=== PATIENT | female | born 1970 | race Caucasian/White ===

== ENCOUNTER → 2016-06-14 | Outpatient (CLI) | payer OTHER, MEDICARE ==
--- NOTE | 2016-06-14 13:57 | US ---
EXAMINATION TYPE: US gallbladder DATE OF EXAM: 06/14/2016 1:16 PM COMPARISON: NONE CLINICAL HISTORY: R10.10 Upper abd pain,R07.1 CHEST PAIN. EXAM MEASUREMENTS: Liver Length: 17.6 cm Gallbladder Wall: 0.3 cm CBD: 0.4 cm Right Kidney: 11.7 x 3.6 x 4.6 cm TECHNOLOGIST IMPRESSION: Pancreas: wnl Liver: ?upper limits of normal in size Gallbladder: wnl Evidence for sonographic Rutherford's sign: no CBD: wnl Right Kidney: wnl Visualized pancreas is felt within normal limits. IVC is unremarkable near hepatic dome. Visualized l iver shows no suspicious intrahepatic mass or ductal dilatation. Common bile duct is within normal li mits. Gallbladder shows no shadowing mobile gallstones. No gross hydronephrosis is present in the rig ht kidney. IMPRESSION: No gallstones or ultrasound evidence for acute cholecystitis.
== END | disposition home or self-care (01) ==
LOC: RADUSWWP 12:53
PROVIDERS: ATTEND Family Medicine
DX: R10.10 Upper abdominal pain, unspecified (principal); R07.1 Chest pain on breathing
CPT/HCPCS: 76705

== ENCOUNTER → 2016-06-14 | Outpatient (CLI) | payer OTHER, MEDICARE ==
--- NOTE | 2016-06-14 13:59 | US ---
EXAMINATION TYPE: US transvaginal DATE OF EXAM: 06/14/2016 1:38 PM COMPARISON: NONE CLINICAL HISTORY: N92.0 Menorrhagia, patient believes she had left oophorectomy, but unsure of side. Spotting throughout month on control pill TECHNIQUE: Transvaginal (TV) pelvic ultrasound Date of LMP: 06-14-16 EXAM MEASUREMENTS: Uterus: 6.3 x 3.7 x 4.4 cm Endometrial Stripe: 0.3 cm Right Ovary: not visualized Left Ovary: not visualized cm TECHNOLOGIST IMPRESSION: wnl 1. Uterus: Anteverted 2. Endometrium: wnl 3. Right Ovary: Obscured by extensive overlying bowel gas 4. Left Ovary: Obscured by extensive overlying bowel gas 5. Bilateral Adnexa: wnl 6. Posterior cul-de-sac: wnl, anterior cul de sac contains moderate amount of ff . Endometrial stripe does not show suspicious thickening. Uterus is slightly bulky and heterogeneous maharaj ggesting possible fibroids. No well-demarcated fibroids are clearly identified. Small to moderate krupa unt of free fluid is seen in pelvis. Neither ovary is identified. No concerning adnexal masses are identified bilaterally on images saved. IMPRESSION: Heterogeneous bulky uterus may reflect underlying fibroids. No suspicious thickening of e ndometrial stripe is seen.
== END | disposition home or self-care (01) ==
LOC: RADUSWWP 12:51
PROVIDERS: ATTEND Obstetrics & Gynecology
DX: N92.0 Excessive and frequent menstruation with regular cycle (principal)
CPT/HCPCS: 76830

== ENCOUNTER 2016-06-17 11:44 | Emergency (ER) | payer OTHER, MEDICARE ==
[2016-06-17] MEDS ORDERED: SODIUM CHLORIDE 0.9% 500 ML IV ONE (12:17)
[2016-06-17] MEDS ORDERED: ONDANSETRON 4 MG/2 ML VIAL IVP STA (12:18)
[2016-06-17] MEDS ORDERED: KETOROLAC 30 MG/ML 1 ML VIAL IVP STA (12:18)
[2016-06-17] MEDS ORDERED: diphenhydrAMINE 50 MG/ML 1 ML VIAL IVP STA (12:18)
[2016-06-17 12:53] VITALS: RESP 18
--- NOTE | 2016-06-17 13:13 | ED ---
Headache HPI - General Chief Complaint: Headache Stated Complaint: headache, vomiting Time Seen by Provider: 06/17/16 12:01 Source: patient, RN notes reviewed Mode of arrival: ambulatory Limitations: no limitations - History of Present Illness Initial Comments: 46-year-old female presents emergency Department chief complaint headache. Patient states the headache started this morning. Patient states she does have some intermittent lightheadedness, nausea vomiting. Patient states she tried taking Excedrin but states that she vomited up immediately. Patient had some headaches like this in the past. Patient denies any focal weakness, chest pain , shortness of breath but, blurred vision. Patient denies any trauma or any head injury. Patient has no neck pain no neck stiffness. Patient denies fever , chills. - Related Data Home Medications Medication Instructions Recorded Confirmed [id number] 1 tab PO Q4HR PRN 06/17/16 06/17/16 [Excedrin] Juleber 1 tab PO DAILY 06/17/16 06/17/16 traMADol HCL [Ultram] 50 mg PO Q6HR PRN 06/17/16 06/17/16 Allergies Allergy/AdvReac Type Severity Reaction Status Date / Time ciprofloxacin [From Cipro] Allergy Anaphylaxis, Verified 06/17/16 11:51 vomiting ciprofloxacin HCl Allergy Anaphylaxis Verified 06/17/16 11:51 [From Cipro] ofloxacin [From Floxin] Allergy Anaphylaxis Verified 06/17/16 11:51 azithromycin AdvReac Diarrhea Verified 06/17/16 11:51 [From Zithromax Z-Javier] cefuroxime axetil AdvReac Swelling Verified 06/17/16 11:51 [From Ceftin] hydrocodone bitartrate AdvReac weakness Verified 06/17/16 11:51 [From Vicodin] sulfamethoxazole AdvReac flu like Verified 06/17/16 11:51 [From Bactrim] symptoms trimethoprim [From Bactrim] AdvReac flu like Verified 06/17/16 11:51 symptoms Review of Systems ROS Statement: Those systems with pertinent positive or pertinent negative responses have been documented in the HPI. ROS Other: All systems not noted in ROS Statement are negative. 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, pleuritic pain History of Any Multi-Drug Resistant Organisms: None Reported Past Surgical History: Orthopedic Surgery Additional Past Surgical History / Comment(s): left ovary romoved 2014, bilateral hand surgeries, kimberley carpal tunnel, tendon release, vaginal surgery, colposcopy Past Anesthesia/Blood Transfusion Reactions: Postoperative Nausea & Vomiting ( PONV) Additional Past Anesthesia/Blood Transfusion Reaction / Comment(s): severe Headaches post op Past Psychological History: No Psychological Hx Reported Smoking Status: Former smoker Past Alcohol Use History: None Reported Additional Past Alcohol Use History / Comment(s): quit smoking 1996, smoked for 5 years Past Drug Use History: None Reported - Past Family History Mother Family Medical History: No Reported History Additional Family Medical History / Comment(s): maternal grandfather with diabetes General Exam Limitations: no limitations General appearance: alert, in no apparent distress Head exam: Present: atraumatic, normocephalic, normal inspection Eye exam: Present: normal appearance, PERRL, EOMI. Absent: scleral icterus, conjunctival injection, periorbital swelling ENT exam: Present: normal exam, normal oropharynx, mucous membranes moist, TM's normal bilaterally, normal external ear exam Neck exam: Present: normal inspection, full ROM. Absent: tenderness, meningismus, lymphadenopathy Respiratory exam: Present: normal lung sounds bilaterally. Absent: respiratory distress, wheezes, rales, rhonchi, stridor Cardiovascular Exam: Present: regular rate, normal rhythm, normal heart sounds. Absent: systolic murmur, diastolic murmur, rubs, gallop, clicks Neurological exam: Present: alert, oriented X3, CN II-XII intact, reflexes normal. Absent: motor sensory deficit Skin exam: Present: warm, dry, intact, normal color. Absent: rash Course Vital Signs 06/17/16 06/17/16 11:49 12:52 Temperature 97.9 F 98.4 F Pulse Rate 80 65 Respiratory 20 18 Rate Blood Pressure 144/86 162/81 O2 Sat by Pulse 96 100 Oximetry Medical Decision Making - Medical Decision Making 46-year-old female presented for headache. Patient states her headache is improved at this time. Patient has no neurological deficits. Patient tolerated fluids emergency department. Patient will be discharged at this time return parameters were discussed. Disposition Clinical Impression: Migraine Disposition: HOME SELF-CARE Condition: Stable Instructions: Acute Headache (ED) Additional Instructions: Please return to the Emergency Department if symptoms worsen or any other concerns. Time of Disposition: 13:30
[2016-06-17] MEDS ORDERED: ONDANSETRON 4 MG ODT STARTER PACK 2 TAB BTL PO STA (13:30)
[2016-06-17 13:49] VITALS: BP 151/74; PULSE 71; TEMP 97.7
== END 2016-06-17 13:49 | disposition home or self-care (01) ==
LOC: EC 11:44
DX: G43.909 Migraine, unspecified, not intractable, without status migrainosus (principal); Z79.3 Long term (current) use of hormonal contraceptives; Z88.1 Allergy status to other antibiotic agents; Z88.5 Allergy status to narcotic agent; Z88.2 Allergy status to sulfonamides; Z87.891 Personal history of nicotine dependence
CPT/HCPCS: 96374 ×2; 96375 ×3; 96361 ×2; 99283 ×2; J1200; J2405; J1885; S0119

== ENCOUNTER → 2017-02-13 | Outpatient (CLI) | payer MEDICARE, OTHER ==
--- NOTE | 2017-02-13 16:28 | NM ---
EXAMINATION TYPE: NM bone scan whole body DATE OF EXAM: 02/13/2017 COMPARISON: NONE HISTORY: 46-year-old female with chest pain, low back, and rib pain. Reconstructive jaw surgery 2 mon ths ago. Technique: Delayed whole-body scanning was performed following the injection of 27.5 mCi Tc 99m MDP. Images acquired 3.5 hours post injection. FINDINGS: There is radiotracer activity in the region of the mandibular angles likely on a postsurgical basis. Some degenerative activity noted in the right hindfoot/ankle region. Otherwise, no abnormal tracer ac cumulation is identified. IMPRESSION: 1. Likely postsurgical activity at the mandible given patient's history. 2. Some degenerative activity at the right ankle/hindfoot. Otherwise, no specific abnormality seen.
== END ==
LOC: RADNMMAIN 10:30
PROVIDERS: ATTEND Family Medicine
DX: R07.9 Chest pain, unspecified (principal)
CPT/HCPCS: 78306; A9503

== ENCOUNTER → 2017-03-13 | Outpatient (CLI) | payer MEDICARE, OTHER ==
--- NOTE | 2017-03-13 13:10 | MR ---
EXAMINATION TYPE: MR thoracic spine wo con DATE OF EXAM: 03/13/2017 12:39 PM COMPARISON: October 14, 2015 HISTORY: radiculopthy tsp, spasms Multiplanar MultiSpin echo imaging of the thoracic spine was performed. Disc spaces: No significant degenerative disc disease identified. Stable small right paracentral disc bulge at T8-T9. No evidence for kimberley disc herniation. Spinal canal: No evidence for canal stenosis. No intrinsic or extrinsic lesion. Thoracic spinal cord: Thoracic spinal cord is of normal caliber and signal. Paraspinal soft tissues: No evidence for paraspinal mass. No destructive lesions seen. Vertebral segments: No evidence for fracture or bony lesion. Other: Previously noted pulmonary nodule is poorly characterized on today's study. IMPRESSION: 1. Stable small disc bulge at T8-T9.
== END | disposition home or self-care (01) ==
LOC: RADMRIMAIN 11:36
PROVIDERS: ATTEND Family Medicine
DX: M51.14 Intervertebral disc disorders with radiculopathy, thoracic region (principal)
CPT/HCPCS: 72146

== ENCOUNTER → 2017-03-17 | Outpatient (CLI) | payer MEDICARE, OTHER ==
[2017-03-17 09:35] LABS: Basophils % (A) 1 %; CH 26.2; CHCM 31.5; Eosinophils % (A) 1 %; HCT 39.5 % (34.0-46.0); HDW 2.89; HGB 12.2 gm/dL (11.4-16.0); Hypochromasia Slight; Luc # (Auto) 0.15; Luc % (Auto) 4; Lymphocytes # (A) 0.6 k/uL (1.0-4.8); Lymphocytes % (A) 15 %; MCH 25.8 pg (25.0-35.0); MCHC 30.8 g/dL (31.0-37.0); MCV 83.8 fL (80.0-100.0); Mean Platelet Volume 7.5; Monocytes # (A) 0.3 k/uL (0-1.0); Monocytes % (A) 8 %; Neutrophils % (A) 73 %; RBC 4.72 m/uL (3.80-5.40); RDW 13.9 % (11.5-15.5); WBC 4.1 k/uL (3.8-10.6); WBC (Perox) 3.95
== END | disposition home or self-care (01) ==
LOC: LABPAT 08:38
PROVIDERS: ATTEND Obstetrics & Gynecology
DX: Z01.812 Encounter for preprocedural laboratory examination (principal)
CPT/HCPCS: 85025

== ENCOUNTER 2017-03-23 05:56 | Day surgery (SDC) | payer MEDICARE, OTHER ==
[2017-03-21 12:08] VITALS: BMI 19.7
--- NOTE | 2017-03-22 13:01 | P.HPOB ---
History of Present Illness H&P Date: 03/22/17 Chief Complaint: Dysfunctional uterine bleeding This patient is a pleasant 46 yr female who is presenting for hysteroscopy and D&C for persistent DUB. Patient had an ultrasound on June 14 that showed some ? uterine fibroids and normal endometrial lining (3 mm). She has been on OCPs, but persistent DUB. She now presents for further evaluation. 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 History of Any Multi-Drug Resistant Organisms: None Reported Past Surgical History: Orthopedic Surgery Additional Past Surgical History / Comment(s): Left ovary removed, bilateral hand surgeries, kimberley carpal tunnel, tendon release, vaginal surgery, colposcopy, upper and lower jaw surgery. Past Anesthesia/Blood Transfusion Reactions: Family History of Problems w/ Anesthesia, Postoperative Nausea & Vomiting (PONV) Additional Past Anesthesia/Blood Transfusion Reaction / Comment(s): Severe headaches post op, grandmother with same reactions. Past Psychological History: No Psychological Hx Reported Smoking Status: Former smoker Past Alcohol Use History: None Reported Additional Past Alcohol Use History / Comment(s): Quit smoking in 1996, smoked for 5 years. Past Drug Use History: None Reported - Past Family History Mother Family Medical History: No Reported History Additional Family Medical History / Comment(s): maternal grandfather with diabetes Medications and Allergies Home Medications Medication Instructions Recorded Confirmed Type Control Pill 1 tab PO HS 03/21/17 03/21/17 History Allergies Allergy/AdvReac Type Severity Reaction Status Date / Time ciprofloxacin [From Cipro] Allergy Anaphylaxis, Verified 03/21/17 11:53 vomiting ciprofloxacin HCl Allergy Anaphylaxis Verified 03/21/17 11:53 [From Cipro] ofloxacin [From Floxin] Allergy Anaphylaxis Verified 03/21/17 11:53 azithromycin AdvReac Diarrhea Verified 03/21/17 11:53 [From Zithromax Z-Javier] cefuroxime axetil AdvReac Swelling Verified 03/21/17 11:53 [From Ceftin] hydrocodone bitartrate AdvReac weakness Verified 03/21/17 11:53 [From Vicodin] sulfamethoxazole AdvReac flu like Verified 03/21/17 11:53 [From Bactrim] symptoms trimethoprim [From Bactrim] AdvReac flu like Verified 03/21/17 11:53 symptoms Exam - OBG Physical Exam Abdomen: bowel sounds normal, no diffuse tenderness, no bruit present, no guarding noted, no hepatomegaly, no splenomegaly, no mass Vulva: both: normal Vagina: normal moisture, no discharge Cervix: no lesion, no discharge Uterus: normal size, normal contour Adnexa: both: normal Results Pelvic ultrasound as above. Assessment and Plan (1) Dysfunctional uterine bleeding Narrative/Plan: This is a pleasant 46 yr old female with refractory DUB. Plan is hysteroscopy and D&C. Patient and I have discussed this surgery and risks: infection, bleeding, possible uterine perforation. All of her questions have been answered and a written consent was obtained. Status: Chronic Code(s): N93.8 - OTHER SPECIFIED ABNORMAL UTERINE AND VAGINAL BLEEDING SNOMED Code(s): 83433195
[~2017-03-23 05:56] MED LIST: DEXAMETHASONE SOD PHOSPHATE 10 MG/ML 1 ML VIAL IV ONE; HYDROmorphone 0.5 MG/0.5 ML SYRINGE IVP PRN; LACTATED RINGERS 1,000 ML IV SCH; MIDAZOLAM 2 MG/2 ML VIAL IV PRN; ONDANSETRON 4 MG/2 ML VIAL IVP ONE; Pre Op ABX Message 1 EACH MISC MISCELLANE ONE
[2017-03-23] MEDS ORDERED: LIDOCAINE 1% 20 ML VIAL (10MG/ML) FOR IV START INTRADERMA ONE (06:28)
[2017-03-23] MEDS ORDERED: fentaNYL (PF) 50 MCG/ML 2 ML AMP ONE (06:36)
[2017-03-23] MEDS ORDERED: PROPOFOL 10 MG/ML 20 ML VIAL IV ONE (06:36)
[2017-03-23] MEDS ORDERED: MIDAZOLAM 2 MG/2 ML VIAL ONE (06:36)
[2017-03-23] MEDS ORDERED: LIDOCAINE 1% INJ 10MG/ML (20 ML MDV) ONE (06:36)
[2017-03-23] MEDS ORDERED: KETOROLAC 30 MG/ML 1 ML VIAL ONE (06:36)
--- NOTE | 2017-03-23 07:09 | P.OP ---
Date of Procedure: 03/23/17 Preoperative Diagnosis: Dysfunctional uterine bleeding Postoperative Diagnosis: Same Procedure(s) Performed: #1: Hysteroscopy. #2: Dilation and curettage. Anesthesia: MAC Surgeon: Oscar Hayward Estimated Blood Loss (ml): 5 IV fluids (ml): 150 Urine output (ml): 10 Pathology: other Condition: stable Disposition: PACU (Uterine curettings) Indications for Procedure: Please see dictated H&P for intimate details of this patient's admission. Brief summary this pleasant 46-year-old 2 para 2 female whose had refractory dysfunctional bleeding despite being on oral contraceptives. Patient is now presenting for hysteroscopy and D&C for further evaluation. Patient does understand the surgery and risks including risks of infection, bleeding, possible uterine perforation. All the patient's questions are answered and a written consent is obtained. Operative Findings: This patient had a normal-appearing endometrial cavity and a severely retroverted uterus. No evidence of polyps, fibroids, and/or other growths. Description of Procedure: This patient is taken to the operating room where she is laid in the supine position. She subsequently undergoes general mask anesthesia without incident. With an adequate level of anesthesia she's placed in dorsal lithotomy position. She has a vaginal perineal prep and drape. Examination under anesthesia shows a severely retroverted uterus of normal size, small. Bladder is drained for 10 mL of clear urine. A weighted speculum was placed in the posterior vagina and the anterior lip of the cervix is grasped with the Allis clamp. Uterus is then sounded to approximately 7 cm. Gentle dilation is then done to allow the hysteroscope easily and the uterine cavity. Using saline solution hysteroscopy is performed and the uterine cavity is visualized and appears normal. Hysteroscope was then removed. With this done serial dilation is done again of the cervix to allow a curette easily and the uterine cavity. A gentle but vigorous 4 quadrant curettage is done for adequate sampling. This tissue is sent off to pathology. With this done the procedure is ended. The Allis clamp was removed and the weighted speculum was removed. All counts are correct 3. There is minimal bleeding. Patient is awakened from anesthesia and taken to the recovery room in satisfactory condition. There are no complications.
[2017-03-23 07:14] VITALS: TEMP 98.7
[2017-03-23 07:26] VITALS: RESP 16
[2017-03-23 08:45] VITALS: BP 114/66; PULSE 87
== END 2017-03-23 09:00 | disposition home or self-care (01) ==
LOC: OR 05:56
PROVIDERS: ATTEND Obstetrics & Gynecology
DX: N93.8 Other specified abnormal uterine and vaginal bleeding (principal); N85.4 Malposition of uterus; Z79.3 Long term (current) use of hormonal contraceptives; M51.24 Other intervertebral disc displacement, thoracic region; M06.9 Rheumatoid arthritis, unspecified; Z87.891 Personal history of nicotine dependence; Z88.1 Allergy status to other antibiotic agents; Z88.5 Allergy status to narcotic agent; Z88.2 Allergy status to sulfonamides
CPT/HCPCS: 81025; 58558; J2250; J1100; J2405; J2001; J3010; J1885; J2704; J1170; 88305

== ENCOUNTER → 2017-11-24 | Outpatient (CLI) | payer MEDICARE, OTHER ==
--- NOTE | 2017-11-27 12:24 | MM ---
Reason for exam: screening (asymptomatic). Last mammogram was performed 2 years and 7 months ago. History: Taking hormonal contraceptives for 6 years. Physical Findings: A clinical breast exam by your physician is recommended on an annual basis and results should be correlated with mammographic findings. MG 3D Screening Mammo W/Cad Bilateral CC and MLO view(s) were taken. Prior study comparison: April 24, 2015, bilateral MG screening mammo w CAD. December 12, 2012, bilateral digital screening mammo w/CAD. The breast tissue is extremely dense which could obscure a lesion on mammography. No significant changes when compared with prior studies. ASSESSMENT: Negative, BI-RAD 1 RECOMMENDATION: Routine screening mammogram of both breasts in 1 year.
== END | disposition home or self-care (01) ==
LOC: RADMAMWWP 09:14
PROVIDERS: ATTEND Obstetrics & Gynecology
DX: Z12.31 Encounter for screening mammogram for malignant neoplasm of breast (principal)
CPT/HCPCS: 77063; 77067

== ENCOUNTER → 2018-09-04 | Outpatient (CLI) | payer MEDICARE, OTHER ==
--- NOTE | 2018-09-04 08:57 | CT ---
EXAMINATION TYPE: CT chest wo con DATE OF EXAM: 09/04/2018 COMPARISON: 07/16/2009 HISTORY: 48-year-old female Chest pain, unable to take deep breath TECHNIQUE: Contiguous axial scanning of the chest without IV contrast. Coronal and sagittal reconstru ctions performed. CT DLP: 317 mGycm Automated exposure control for dose reduction was used. FINDINGS: Heart upper limits of normal in size. Trace pericardial fluid/thickening. Aorta normal caliber with conventional arch vessel branching anatomy. Scattered nonenlarged mediastinal and axillary lymph nodes. No thoracic lymphadenopathy by CT size cr iteria. Right apical pleural-parenchymal scarring. Bandlike scarring or atelectasis at the right greater than left lung bases. No consolidation or pleural effusion. There is some layering fluid within the midthoracic esophagus. Moderate stools in the visualized uppe r abdomen. Hilar splenule. Bones: No osseous destructive process. IMPRESSION: 1. TRACE PERICARDIAL EFFUSION. THIS MAY BE PHYSIOLOGIC. QUERY IF THE PATIENT'S SYMPTOMS SUGGEST PERIC ARDITIS. 2. STRANDY ATELECTASIS OR SCARRING AT THE LUNG BASES AND BIAPICAL PLEURAL PARENCHYMAL SCARRING. NO AC [place] PULMONARY PROCESS. 3. SOME LAYERING FLUID IN THE MID THORACIC ESOPHAGUS COULD BE SECONDARY TO DYSMOTILITY OR GASTROESOPH AGEAL REFLUX. CLINICALLY CORRELATE.
== END | disposition home or self-care (01) ==
LOC: RADCTMAIN 07:48
PROVIDERS: ATTEND Family Medicine
DX: R07.89 Other chest pain (principal)
CPT/HCPCS: 71250

== ENCOUNTER → 2018-12-20 | Outpatient (CLI) | payer MEDICARE, OTHER ==
--- NOTE | 2018-12-21 09:22 | MM ---
Reason for exam: screening (asymptomatic). Last mammogram was performed 1 year and 1 month ago. History: Taking hormonal contraceptives for 6 years. Physical Findings: A clinical breast exam by your physician is recommended on an annual basis and results should be correlated with mammographic findings. MG 3D Screening Mammo W/Cad Bilateral CC and MLO view(s) were taken. Prior study comparison: November 24, 2017, bilateral MG 3d screening mammo w/cad. April 24, 2015, bilateral MG screening mammo w CAD. The breast tissue is extremely dense which could obscure a lesion on mammography. No suspicious abnormality. No significant changes when compared with prior studies. ASSESSMENT: Negative, BI-RAD 1 RECOMMENDATION: Routine screening mammogram of both breasts in 1 year.
== END | disposition home or self-care (01) ==
LOC: RADMAMWWP 07:54
PROVIDERS: ATTEND Obstetrics & Gynecology
DX: Z12.31 Encounter for screening mammogram for malignant neoplasm of breast (principal)
CPT/HCPCS: 77063; 77067

== ENCOUNTER → 2019-05-31 | Outpatient (CLI) | payer MEDICARE, OTHER ==
--- NOTE | 2019-05-31 12:11 | CT ---
EXAMINATION TYPE: CT facial bones w con DATE OF EXAM: 05/31/2019 COMPARISON: None HISTORY: Right side mandibular swelling CT DLP: 881 mGycm CONTRAST: 100 mL of Isovue 300 The paranasal sinuses are examined in the axial plane at 2 mm thick sections. Reconstructed images i n the coronal plane were obtained. Note is made of opacification of mid and posterior left ethmoid air cells. There is a retention cyst within the right maxillary sinus. Remaining paranasal sinuses are clear. There is prior anterior maxillary wall repair is noted. Greater wings of sphenoid appear intact. Zyg omatic arches are normal. Temporomandibular junctions are normal. The mandible appears intact. Beam h ardening artifact from dental hardware is evident. Prior maxillary wall fractures on the posterior l ateral maxillary bryant. There is right septal deviation. Right ostiomeatal unit is obstructed. Attention is paid to the right submandibular region. There is a hypodense area along the submandibula r region on the right with peripheral contrast which appears to be vascular. This may have a maximum depth of 0.9 cm. Developing abscess could be considered. Dilated salivary duct could be considered. S ubmandibular gland may be medially displaced. IMPRESSIONS: 1. There is some low density area which may be displacing the submandibular gland medially. Developi ng abscess should be considered. Correlate with the clinical symptoms. If closer evaluation would be of benefit, MRI could be performed.
== END | disposition home or self-care (01) ==
LOC: RADCTMAIN 11:09
PROVIDERS: ATTEND Family Medicine
DX: M27.2 Inflammatory conditions of jaws (principal)
CPT/HCPCS: 70487; Q9967

== ENCOUNTER → 2021-04-26 | Outpatient (CLI) | payer MEDICARE, OTHER ==
[2021-04-26 14:58] LABS: Basophils # (A) 0.02 X 10*3/uL (0.00-0.10); Basophils % (A) 0.6 %; Eosinophils # (A) 0.03 X 10*3/uL (0.04-0.35); Eosinophils % (A) 0.9 %; HCT 42.2 % (37.2-46.3); HGB 13.4 g/dL (12.0-15.0); Lymphocytes # (A) 0.81 X 10*3/uL (0.90-5.00); Lymphocytes % (A) 23.1 %; MCH 27.8 pg (27.0-32.0); MCHC 31.8 g/dL (32.0-37.0); MCV 87.6 fL (80.0-97.0); Mean Platelet Volume 10.5 fL (9.5-12.2); Monocytes # (A) 0.56 X 10*3/uL (0.20-1.00); Neutrophils # (A) 2.06 X 10*3/uL (1.80-7.70); Neutrophils % (A) 58.5 %; Platelet Count 235 X 10*3/uL (140-440); RBC 4.82 X 10*6/uL (4.10-5.20); RDW 13.2 % (11.5-14.5); WBC 3.51 X 10*3/uL (4.50-10.00)
[2021-04-26 16:24] LABS: Protein, Total 7.3 g/dL (6.2-8.2)
[2021-04-26 16:30] LABS: ALT 13 U/L (8-44); AST 18 U/L (13-35); African American GFR (CKD) 107.1 (60.0-200.0); Albumin 4.3 g/dL (3.8-4.9); Albumin/Globulin Ratio 1.43 (1.60-3.17); Alkaline Phosphatase 81 U/L (41-126); BUN/Creat Ratio 14.64 Ratio (12.00-20.00); Blood Urea Nitrogen 11.1 mg/dL (9.0-27.0); Calcium 9.8 mg/dL (8.7-10.3); Carbon Dioxide 25.8 mmol/L (20.0-27.5); Chloride 102 mmol/L (96-109); Glucose 89 mg/dL (70-110); Non-African American GFR(CKD) 92.4 (60.0-200.0); Potassium 4.2 mmol/L (3.5-5.5); Sodium 141 mmol/L (135-145); Total Bilirubin <0.20 mg/dL (0.30-1.20); Total Protein 7.4 g/dL (6.2-8.2)
[2021-04-27 15:06] LABS: Albumin 3.96 g/dL (3.80-4.90); Gamma Globulin 1.5 g/dL (0.70-1.50)
== END | disposition home or self-care (01) ==
LOC: LABWHC1 10:15
PROVIDERS: ATTEND Internal Medicine
DX: L50.9 Urticaria, unspecified (principal)
CPT/HCPCS: 36415; 80053; 84165; 84443; 85025

== ENCOUNTER 2021-07-16 06:20 | Day surgery (SDC) | payer MEDICARE, OTHER ==
[2021-07-14 14:40] VITALS: BMI 24.2
--- NOTE | 2021-07-16 00:57 | P.GSHP ---
History of Present Illness H&P Date: 07/16/21 CHIEF COMPLAINT: Abdominal wall mass HISTORY OF PRESENT ILLNESS: The patient is a 51 year-old female with history of mass along the left upper quadrant with pain. She presents today for surgical excision. PAST MEDICAL HISTORY: Please see list. PAST SURGICAL HISTORY: Please see list. MEDICATIONS: Please see list. ALLERGIES: Please see list. SOCIAL HISTORY: No illicit drug use FAMILY HISTORY: No reports of Crohn disease or ulcerative colitis. REVIEW OF ORGAN SYSTEMS: CONSTITUTIONAL: No reports of fevers or chills. GI: Denies any blood in stools or constipation. PHYSICAL EXAM: VITAL SIGNS: Stable SKIN: Well perfused. Good skin turgor. 4 cm mass at the left upper quadrant. Musculoskeletal: No clubbing cyanosis or edema GENERAL: Well developed and in no acute distress. Pleasant. HEENT: No sclera icterus. Extraocular movements grossly intact. Moist buccal mucosa. Head is atraumatic, normocephalic. Hears conversational speech. No nasal drainage. NECK: Supple without lymphadenopathy. No JV distention. CHEST: Non-labored respirations and equal bilateral excursions. CARDIOVASCULAR: Regular rate and rhythm. Palpable 2+ radial pulses. ABDOMEN: Soft. Non-tender. Nondistended. NEUROLOGIC: No focal or lateralizing signs. PSYCH: Appropriate affect. Alert and oriented to person, place and time. ASSESSMENT: 1. Left upper abdominal wall mass. PLAN: 1. Will proceed of excision of deep subcutaneous tumor along the abdominal wall 2. DVT prophylaxis. 3. Antibiotic prophylaxis. 4. Time of recovery, at least one week. Past Medical History Past Medical History: Asthma Additional Past Medical History / Comment(s): raynauds, mild mixed connective tissue disease mostly in hands, pleuritic pain, migraines, hx scleroderma, lupus-"not active", cuurently has left wrist pain from carpal tunnel History of Any Multi-Drug Resistant Organisms: None Reported Past Surgical History: Orthopedic Surgery Additional Past Surgical History / Comment(s): left oophorectomy, bilateral carpal tunnel, kimberley hand tendon release, vaginoplasty, colposcopy, kimberley jaw surgery Past Anesthesia/Blood Transfusion Reactions: Previous Problems w/ Anesthesia, Postoperative Nausea & Vomiting (PONV) Additional Past Anesthesia/Blood Transfusion Reaction / Comment(s): severe Headaches post op Smoking Status: Former smoker - Past Family History Mother Family Medical History: No Reported History Additional Family Medical History / Comment(s): . Medications and Allergies Home Medications Medication Instructions Recorded Confirmed Type Cetirizine HCl [Zyrtec] 10 mg PO BID 07/15/21 07/15/21 History Famotidine [Pepcid] 20 mg PO BID 07/15/21 07/15/21 History Montelukast [Singulair] 10 mg PO HS 07/15/21 07/15/21 History Allergies Allergy/AdvReac Type Severity Reaction Status Date / Time ciprofloxacin [From Cipro] Allergy Anaphylaxis, Verified 07/14/21 14:30 vomiting ciprofloxacin HCl Allergy Anaphylaxis Verified 07/14/21 14:30 [From Cipro] ofloxacin [From Floxin] Allergy Anaphylaxis Verified 07/14/21 14:30 Tetanus Vaccines and Toxoid Allergy face Verified 07/14/21 14:31 Swelling/hives azithromycin AdvReac Diarrhea Verified 07/14/21 14:30 [From Zithromax Z-Javier] cefuroxime axetil AdvReac Swelling Verified 07/14/21 14:30 [From Ceftin] hydrocodone bitartrate AdvReac weakness Verified 07/14/21 14:30 [From Vicodin] sulfamethoxazole AdvReac flu like Verified 07/14/21 14:30 [From Bactrim] symptoms trimethoprim [From Bactrim] AdvReac flu like Verified 07/14/21 14:30 symptoms
[~2021-07-16 06:20] MED LIST changes: +ACETAMINOPHEN TAB 500 MG TAB PO PRN; +CLINDAMYCIN 900 MG in DEXTROSE 5% IN WATER 50 ML IVPB PRN; -DEXAMETHASONE SOD PHOSPHATE 10 MG/ML 1 ML VIAL IV ONE; +DEXAMETHASONE SOD PHOSPHATE 4 MG/ML 1 ML VIAL IV ONE; +GABAPENTIN 300 MG CAP PO PRN; +HEPARIN SODIUM,PORCINE/PF 5,000 UNIT/0.5 ML SYRINGE SQ PRN; -HYDROmorphone 0.5 MG/0.5 ML SYRINGE IVP PRN; +MELOXICAM 7.5 MG TAB PO PRN; -MIDAZOLAM 2 MG/2 ML VIAL IV PRN; +SCOPOLAMINE 1.5MG/72HR PATCH TRANSDERM PRN; +fentaNYL (PF) 50 MCG/ML 2 ML AMP IV PRN
[2021-07-16 06:40] VITALS: TEMP 97.5
[2021-07-16] MEDS ORDERED: LACTATED RINGERS 1,000 ML IV ONE (06:40)
[2021-07-16 07:43] LABS: HCT 44.6 % (34.0-46.0); HGB 14.6 gm/dL (11.4-16.0); MCH 28.2 pg (25.0-35.0); MCHC 32.7 g/dL (31.0-37.0); MCV 86.2 fL (80.0-100.0); Platelet Count 189 k/uL (150-450); RBC 5.17 m/uL (3.80-5.40); WBC 2.9 k/uL (3.8-10.6)
[2021-07-16] MEDS ORDERED: MIDAZOLAM 2 MG/2 ML VIAL ONE (07:49)
[2021-07-16] MEDS ORDERED: PROPOFOL 10 MG/ML 20 ML VIAL IV ONE (07:49)
[2021-07-16] MEDS ORDERED: fentaNYL (PF) 50 MCG/ML 2 ML AMP ONE (07:49)
[2021-07-16] MEDS ORDERED: BUPIVACAIN-EPI 0.25%-1:200,000 30 ML VIAL SQ ONE (08:08)
[2021-07-16 08:21] LABS: Eosinophils # (M) 0.03 k/uL (0-0.7); Lymphocytes # (M) 0.84 k/uL (1.0-4.8); Monocytes # (M) 0.46 k/uL (0-1.0); Neutrophils # (M) 1.57 k/uL (1.3-7.7); Neutrophils % (M) 54 %; Nucleated Red Blood Cells 0 /100 WBC (0-0); Total Cells Counted 100
[2021-07-16 08:22] LABS: RBC Morphology Normal
[2021-07-16 08:38] VITALS: RESP 12
--- NOTE | 2021-07-16 08:41 | P.OP ---
Date of Procedure: 07/16/21 Description of Procedure: SURGEON: SUNSHINE WEBB MD AUTOGLAZIER: NONE. PREOPERATIVE DIAGNOSES: 1. Left upper quadrant abdominal wall lesion 2. Gastroesophageal reflux disease 3. Environmental ALLERGIES 4. Scleroderma 5. Raynaud's phenomenon 6. Postop nausea vomiting POSTOPERATIVE DIAGNOSES: 1. Left upper quadrant abdominal wall lesion 2. Gastroesophageal reflux disease 3. Environmental ALLERGIES 4. Scleroderma 5. Raynaud's phenomenon 6. Postop nausea vomiting OPERATION: 1. Excision of left upper quadrant abdominal subcutaneous tumor 3 cm x 1 cm. 2. Intermediate closure of the left upper abdominal incision, 3 cm. ANESTHESIA: MAC and local ESTIMATED BLOOD LOSS: 5 mL. SPECIMENS REMOVED: 1. Abdominal wall tumor left upper quadrant COMPLICATIONS: None. FINDINGS: 1. Abdominal wall tumor involving subcutaneous tissue, 3 x 1 cm with borders. INDICATIONS: The patient is a 51-year-old female who presents with left upper quadrant pain including increased abdominal wall tenderness and swelling. Surgical options, including excision was discussed. Benefits and risks were described. Informed consent was obtained. DESCRIPTION OF PROCEDURE: In the pre-operative area, the mass was palpated and marked with indelible marker. Patient was brought into the operating room, laid in supine position. After sedation, the abdomen was prepped and draped in standard sterile fashion using ChloraPrep. A timeout protocol was confirmed with the surgical team regarding patient's name including procedures to be performed. Preoperative medications was administered. A soft tissue skin flap was developed after injecting with local. Using #15 blade a 3-cm elliptical incision including borders was made into the subcutaneous tissue. The abdominal lesoion was palpated and dissected circumferentially using Bovie cautery. Hemostasis was checked with electro- Bovie cautery. The specimen was passed off. The wound was cleansed with dilute hydrogen peroxide. Next the wound was closed in layers using 0-Vicryl for the subcutaneous tissue. The skin was cleansed. For the dermis, 3-0 Monocryl was placed along the length of the incision. Exofin tape was applied over the incision and with Optifoam. At the end of the procedure, needle, sponge, and instrument count had been saud ified correct by the biodiesel production technician. The patient was taken to the postanesthesia care unit in stable condition. Plan - Discharge Summary Discharge Rx Participant: Yes New Discharge Prescriptions: New Ibuprofen [Motrin] 600 mg PO Q8HR PRN #30 tab PRN Reason: Pain Acetaminophen Tab [Tylenol Tab] 1,000 mg PO Q6HR PRN #30 tablet PRN Reason: Pain Continue Famotidine [Pepcid] 20 mg PO BID Montelukast [Singulair] 10 mg PO HS Cetirizine HCl [Zyrtec] 10 mg PO BID Discharge Medication List Cetirizine HCl [Zyrtec] 10 mg PO BID 07/15/21 [History] Famotidine [Pepcid] 20 mg PO BID 07/15/21 [History] Montelukast [Singulair] 10 mg PO HS 07/15/21 [History] Acetaminophen Tab [Tylenol Tab] 1,000 mg PO Q6HR PRN #30 tablet 07/16/21 [Rx] Ibuprofen [Motrin] 600 mg PO Q8HR PRN #30 tab 07/16/21 [Rx] Follow up Appointment(s)/Referral(s): Sunshine Webb MD [STAFF PHYSICIAN] - 07/22/21 (Telehealth) Patient Instructions/Handouts: *Surgery [facility] - (Anesthesia) Discharge Instructions Outpatient Surgery, *Surgery [facility] - Scopalamine Patch Instructions Activity/Diet/Wound Care/Special Instructions: DO NOT REMOVE OUTER DRESSING UNTIL 07/21/21..Leave underlying tape in place No lifting over 10 pounds in 2 weeks until July 30September shower. No bath tub soaks for 4 weeks until July 30. Diet as tolerated. Use Tylenol and ibuprofen scheduled for the next 24-48 hours for best pain relief. Use ice along incisions for today to prevent swelling. Discharge Disposition: HOME SELF-CARE
[2021-07-16] MEDS ORDERED: ACETAMINOPHEN TAB 325 MG TAB ONE (09:06)
[2021-07-16] MEDS ORDERED: ACETAMINOPHEN TAB 500 MG TAB PO ONE (09:08)
[2021-07-16] MEDS ORDERED: ACETAMINOPHEN TAB 500 MG TAB ONE (09:08)
[2021-07-16 09:26] VITALS: BP 109/65; PULSE 70
== END 2021-07-16 09:38 | disposition home or self-care (01) ==
LOC: OR 06:20
PROVIDERS: ATTEND Surgery Plastic and Reconstructive Surgery
DX: R19.00 Intra-abdominal and pelvic swelling, mass and lump, unspecified site (principal); K21.9 Gastro-esophageal reflux disease without esophagitis; M34.9 Systemic sclerosis, unspecified; I73.00 Raynaud's syndrome without gangrene; Z87.891 Personal history of nicotine dependence
CPT/HCPCS: 22903; 81025; 88304; 85025; J2250; J1100; J2405; J3010; J2704; J1644